=== PATIENT | male | born 1985 | race Caucasian/White ===

== ENCOUNTER 2025-06-01 13:44 | Emergency (ER) | payer MEDICAID ==
[2025-06-01 14:27] LABS: HCT 45.7 % (39.6-50.0); HGB 16.4 g/dL (13.0-17.0); MCH 30.4 pg (27.0-32.0); MCHC 35.9 g/dL (32.0-37.0); MCV 84.6 fL (80.0-97.0); Platelet Count 300 10*3/uL (140-440); RBC 5.40 10*6/uL (4.40-5.60); RDW 12.2 % (11.5-14.5); WBC 6.48 10*3/uL (4.50-10.00)
[2025-06-01] MEDS: SODIUM CHLORIDE 0.9% 1,000 ML IV ONE (14:39)
[2025-06-01] MEDS: ACETAMINOPHEN TAB 500 MG TAB PO STA (14:40)
[2025-06-01] MEDS: ONDANSETRON 4 MG/2 ML VIAL IVP STA (14:41)
[2025-06-01 14:43] LABS: Bilirubin,Urine Negative (Negative); Blood,Urine Trace (Negative); Color,Urine Colorless; Glucose,Urine (UA) Negative (Negative); Ketones,Urine Negative (Negative); Leukocyte Esterase,Urine Negative (Negative); Mucus,Urine Rare /hpf; Nitrite,Urine Negative (Negative); PH, Urine 5.5 (5.0-8.0); Protein,Urine Negative (Negative); RBC,Urine <1 /hpf (0-5); Specific Gravity,Urine 1.008 (1.001-1.035); Urobilinogen,Urine <2.0 mg/dL (<2.0)
[2025-06-01 14:44] LABS: ALT 35 U/L (4-49); AST 39 U/L (17-59); African American GFR (CKD) >90 (>60 ml/min/1.73 sqM); Albumin 4.6 g/dL (3.5-5.0); Alkaline Phosphatase 100 U/L (38-126); Anion Gap 12 mmol/L; Blood Urea Nitrogen 18 mg/dL (9-20); Calcium 9.8 mg/dL (8.4-10.2); Carbon Dioxide 20 mmol/L (22-30); Chloride 105 mmol/L (98-107); Creatine Kinase 217 U/L (55-170); Glucose 97 mg/dL (74-99); Magnesium 2.0 mg/dL (1.6-2.3); Non-African American GFR(CKD) >90 (>60 ml/min/1.73 sqM); Potassium 4.3 mmol/L (3.5-5.1); Sodium 137 mmol/L (137-145); Total Protein 7.7 g/dL (6.3-8.2)
[2025-06-01 14:44] LABS: Glucose,Whole Blood 88 mg/dL (70-110)
[2025-06-01] MEDS: diphenhydrAMINE 50 MG/ML 1 ML VIAL IVP STA (14:44)
[2025-06-01 14:48] LABS: INR 0.9 (<1.2); Partial Thromboplastin Time 25.8 sec (22.0-30.0); Prothrombin Time 10.5 sec (10.0-12.5)
--- NOTE | 2025-06-01 14:49 | ED ---
General Adult HPI - General Chief complaint: Recheck/Abnormal Lab/Rx Stated complaint: Dizziness Time Seen by Provider: 06/01/25 13:55 Source: patient, RN notes reviewed, old records reviewed Mode of arrival: ambulatory Limitations: no limitations - History of Present Illness Initial comments: 39-year-old male who presents department with double and. He is a surveillance officer. States he was sitting looking at his computer when he suddenly experienced some strange sensation as well as some double vision. Had a mild headache. Blood pressure was taken at that time and was elevated. Sent here for further evaluation. Symptoms occurred at approximately 1300. Patient was evaluated at approximately 1355. He still has some mild blurry vision and mild headache but is improving. He has no other symptoms. No history of stroke. Is not on medications. No history of high blood pressure or anxiety. Has no other acute complaints at this time. Presents for further evaluation.States the blurry vision was sudden. No eye pain. No head injury. No other acute complaints. - Related Data Allergies Allergy/AdvReac Type Severity Reaction Status Date / Time No Known Allergies Allergy Verified 06/01/25 13:50 Review of Systems ROS Statement: Those systems with pertinent positive or pertinent negative responses have been documented in the HPI. Review of Systems: CONST: Denies fever EYES: Endorses mild blurry vision, left worse than right. ENT: Denies nasal congestion C/V: Denies Chest pain RESP: Denies shortness of breath GI: Denies abdominal pain : Denies dysuria SKIN: Denies rash. MSK: Denies joint pain. NEURO: Endorses mild headache ROS Other: All systems not noted in ROS Statement are negative. Past Medical History Past Medical History: No Reported History History of Any Multi-Drug Resistant Organisms: None Reported Past Surgical History: No Surgical Hx Reported Past Psychological History: No Psychological Hx Reported Smoking Status: Never smoker Past Alcohol Use History: Occasional Past Drug Use History: None Reported General Exam - General Exam Comments Initial Comments: General: Appears in no acute distress. HEAD: Normal with no signs of head trauma. EYES: PERRLA, EOMI, conjunctiva normal, no discharge. Pupils are 2 mm and equal bilaterally. Visual acuity is 20-30 bilaterally, 20/30 in the left eye, 20/40 in the right eye. Intraocular pressures are within normal limits, right eye is 16 and left eye is 13. ENT: Hearing grossly intact, normal oropharynx. RESPIRATORY: Clear breath sounds bilaterally. No wheezes, rales, or rhonchi. C/V: Regular rate and rhythm. S1 and S2 auscultated, no edema, peripheral pulses 2+ and intact throughout ABD: Abd is soft, nontender, nondistended EXT: Normal range of motion, no obvious deformity SKIN: No rashes or lesions observed on exposed skin. NEURO: Alert and oriented x 4. Cranial nerves II-XII intact. No focal sensory or strength deficits. NIH of 0. GCS 15. Limitations: no limitations Course Vital Signs 06/01/25 06/01/25 13:46 16:22 Temperature 98.7 F 98.5 F Pulse Rate 84 82 Respiratory 20 16 Rate Blood Pressure 156/103 140/93 O2 Sat by Pulse 99 100 Oximetry Medical Decision Making - Medical Decision Making Was pt. sent in by a medical professional or institution (, PA, SLOTTER OPERATOR HELPER, urgent care, hospital, or care home...) When possible be specific @ -No Did you speak to anyone other than the patient for history (EMS, parent, family, police, friend...)? What history was obtained from this source @ -No Did you review nursing and triage notes (agree or disagree)? Why? @ -I reviewed and agree with nursing and triage notes Were old charts reviewed (outside hosp., previous admission, EMS record, old EKG, old radiological studies, urgent care reports/EKG's, care home records)? Report findings @ -No old charts were reviewed Differential Diagnosis (chest pain, altered mental status, abdominal pain women, abdominal pain men, vaginal bleeding, weakness, fever, dyspnea, syncope, headache, dizziness, GI bleed, back pain, seizure, CVA, palpatations, mental health, musculoskeletal)? @ -Blurry vision, electrolyte abnormality, stroke, diabetes, retinal detachment, intracranial bleed. This list is not all-inclusive. EKG interpreted by me (3pts min.). @ -As above X-rays interpreted by me (1pt min.). @None done CT interpreted by me (1pt min.). @ -Brain CT shows no obvious acute intracranial process. CT angiogram head and neck negative for any obvious acute large vessel occlusion or acute process. U/S interpreted by me (1pt. min.). @ -None done What testing was considered but not performed or refused? (CT, X-rays, U/S, labs)? Why? @ -None What meds were considered but not given or refused? Why? @ -None Did you discuss the management of the patient with other professionals (professionals i.e. , PA, SLOTTER OPERATOR HELPER, lab, RT, psych nurse, long term care social worker, functional architect, teacher, mounted police officer, casey saw operator)? Give summary @ -No Was smoking cessation discussed for >3mins.? @ -No Was critical care preformed (if so, how long)? @ -No Were there social determinants of health that impacted care today? How? (Homelessness, low income, unemployed, alcoholism, drug addiction, transportation, low edu. Level, literacy, decrease access to med. care, fpc, r ehab)? @ -No Was there de-escalation of care discussed even if they declined (Discuss DNR or withdrawal of care, Hospice)? DNR status @ -No What co-morbidities impacted this encounter? (DM, HTN, Smoking, COPD, CAD, Cancer, CVA, ARF, Chemo, Hep., AIDS, mental health diagnosis, sleep apnea, morbid obesity)? @ -None Was patient admitted / discharged? Hospital course, mention meds given and route, prescriptions, significant lab abnormalities, going to OR and other pertinent info. @ -Patient presents with blurry vision and some blood pressure elevation at outside facility. Currently blood pressure is within acceptable limits. His symptoms are improving. NIH is 0. We will obtain I evaluation as well as brain evaluation. Patient in agreement this plan. Vitals are within acceptable limit s. He is given IV fluids, as well as a partial migraine cocktail. EKG shows no signs of acute ischemia. CT brain unremarkable. CT angiogram unremarkable. Laboratory studies are all within acceptable limits except for slight elevation in creatinine kinase of 217 which was treated with 1 L fluid bolus. Remainder the labs unremarkable. On reevaluation, symptoms have all resolved. I did do a bedside ultrasound which showed no obvious evidence of retinal detachment. Intraocular exam pressures normal, and eye exam otherwise within acceptable limits. I discussed with the patient he will be discharged home at this time with instructions to follow-up with PCP. Return if any worsening symptoms. Patient was in agreement this plan. We did discuss that he has elevated blood pressures that are not significant elevated at this time could be related to his decongestant use at home and I rec ommended he stop using this and monitor his pressures closely. He was in agreement this plan. I instructed the patient to follow up with their PCP in the next 1-3 days. I explained that the patient should return to the emergency department if they experience any worsening symptoms. Strict return precautions were discussed with the patient. The patient expressed understanding of these instructions. I answered all questions that the patient had. The patient was discharged home in good condition with their prescriptions and follow up information. Undiagnosed new problem with uncertain prognosis? @ -No Drug Therapy requiring intensive monitoring for toxicity (Heparin, Nitro, Insulin, Cardizem)? @ -No Were any procedures done? @ -No Diagnosis/symptom? @ -Dehydration, transient blurry vision Acute, or Chronic, or Acute on Chronic? @ -Acute Uncomplicated (without systemic symptoms) or Complicated (systemic symptoms)? @ -Uncomplicated Side effects of treatment? @ -No Exacerbation, Progression, or Severe Exacerbation? @ -No Poses a threat to life or bodily function? How? (Chest pain, [place], [place], pneumonia, PE, COPD, DKA, ARF, appy, cholecystitis, CVA, Diverticulitis, Homicidal, Suic idal, threat to staff... and all critical care pts) @ -Unlikely at this time - Lab Data Result diagrams: 06/01/25 14:13 06/01/25 14:13 Lab Results 06/01/25 06/01/25 06/01/25 Range/Units 14:13 14:13 14:13 WBC 6.48 (4.50-10.00) 10*3/uL RBC 5.40 (4.40-5.60) 10*6/uL Hgb 16.4 (13.0-17.0) g/dL Hct 45.7 (39.6-50.0) % MCV 84.6 (80.0-97.0) fL MCH 30.4 (27.0-32.0) pg MCHC 35.9 (32.0-37.0) g/dL Plt Count 300 (140-440) 10*3/uL MPV 9.0 L (9.5-12.2) fL PT 10.5 (10.0-12.5) sec INR 0.9 (<1.2) APTT 25.8 (22.0-30.0) sec Sodium 137 (137-145) mmol/L Potassium 4.3 (3.5-5.1) mmol/L Chloride 105 (98-107) mmol/L Carbon Dioxide 20 L (22-30) mmol/L Anion Gap 12 mmol/L BUN 18 (9-20) mg/dL Creatinine 0.80 (0.66-1.25) mg/dL Est GFR (CKD-EPI)AfAm >90 (>60 ml/min/1.73 sqM) Est GFR (CKD-EPI)NonAf >90 (>60 ml/min/1.73 sqM) Glucose 97 (74-99) mg/dL POC Glucose (mg/dL) (70-110) mg/dL POC Glu Booking Supervisor ID Calcium 9.8 (8.4-10.2) mg/dL Magnesium 2.0 (1.6-2.3) mg/dL Total Bilirubin 1.0 (0.2-1.3) mg/dL AST 39 (17-59) U/L ALT 35 (4-49) U/L Alkaline Phosphatase 100 (38-126) U/L Creatine Kinase 217 H (55-170) U/L Total Protein 7.7 (6.3-8.2) g/dL Albumin 4.6 (3.5-5.0) g/dL Urine Color Urine Appearance (Clear) Urine pH (5.0-8.0) Ur Specific [place] (1.001-1.035) Urine Protein (Negative) Urine Glucose (UA) (Negative) Urine Ketones (Negative) Urine Blood (Negative) Urine Nitrite (Negative) Urine Bilirubin (Negative) Urine Urobilinogen (<2.0) mg/dL Ur Leukocyte Esterase (Negative) Urine RBC (0-5) /hpf Urine Mucus (None) /hpf 06/01/25 06/01/25 Range/Units 14:27 14:42 WBC (4.50-10.00) 10*3/uL RBC (4.40-5.60) 10*6/uL Hgb (13.0-17.0) g/dL Hct (39.6-50.0) % MCV (80.0-97.0) fL MCH (27.0-32.0) pg MCHC (32.0-37.0) g/dL Plt Count (140-440) 10*3/uL MPV (9.5-12.2) fL PT (10.0-12.5) sec INR (<1.2) APTT (22.0-30.0) sec Sodium (137-145) mmol/L Potassium (3.5-5.1) mmol/L Chloride (98-107) mmol/L Carbon Dioxide (22-30) mmol/L Anion Gap mmol/L BUN (9-20) mg/dL Creatinine (0.66-1.25) mg/dL Est GFR (CKD-EPI)AfAm (>60 ml/min/1.73 sqM) Est GFR (CKD-EPI)NonAf (>60 ml/min/1.73 sqM) Glucose (74-99) mg/dL POC Glucose (mg/dL) 88 (70-110) mg/dL POC Glu Booking Supervisor ID [facility] Calcium (8.4-10.2) mg/dL Magnesium (1.6-2.3) mg/dL Total Bilirubin (0.2-1.3) mg/dL AST (17-59) U/L ALT (4-49) U/L Alkaline Phosphatase (38-126) U/L Creatine Kinase (55-170) U/L Total Protein (6.3-8.2) g/dL Albumin (3.5-5.0) g/dL Urine Color Colorless Urine Appearance Clear (Clear) Urine pH 5.5 (5.0-8.0) Ur Specific [place] 1.008 (1.001-1.035) Urine Protein Negative (Negative) Urine Glucose (UA) Negative (Negative) Urine Ketones Negative (Negative) Urine Blood Trace H (Negative) Urine Nitrite Negative (Negative) Urine Bilirubin Negative (Negative) Urine Urobilinogen <2.0 (<2.0) mg/dL Ur Leukocyte Esterase Negative (Negative) Urine RBC <1 (0-5) /hpf Urine Mucus Rare H (None) /hpf - EKG Data -: EKG Interpreted by Me EKG Comments: 12-lead Electrocardiogram Interpretation Note EKG was reviewed and interpreted by myself. 12-lead ECG performed at 1407 is interpreted by me as revealing normal sinus rhythm at a rate of 81 beats per minute. Indeterminate axis. NE interval is 121 ms, QRS duration is 99 ms, QTc is 388 ms.. There were no ST or T wave abnormalities to suggest myocardial ischemia or injury. R wave progression across the precordium was satisfactory. By my interpretation this EKG is non-diagnostic for acute ischemia. Disposition Clinical Impression: Blurry vision, Dehydration Disposition: HOME SELF-CARE Condition: Good Additional Instructions: Diagnosis today is dehydration. You had a mild headache since blurry vision which resolved in the ER. No significant complaints at time of discharge. Follow-up with your PCP outpatient. Return if any worsening symptoms. Avoid decongestants. Is patient prescribed a controlled substance at d/c from ED?: No Referrals: Yemi Deluna DO [Primary Care Provider] - 1-2 days Time of Disposition: 15:55
--- NOTE | 2025-06-01 15:27 | CT ---
EXAMINATION TYPE: CT brain wo con DATE OF EXAM: 06/01/2025 3:22 PM COMPARISON: None. CLINICAL INDICATION: Male, 39 years old with history of left eye blurry vision, left eye blurry visio n TECHNIQUE: Brain: Axial CT images of the brain were obtained with coronal and sagittal reformats created and rev iewed. Contrast used: None. Oral contrast used: None. CT DLP: 1159.3 mGycm, Automated exposure control for dose reduction was used. FINDINGS: Brain: Extra-axial spaces: No abnormal extra-axial fluid collections. Ventricular system: Within normal limits Cerebral parenchyma: No acute intraparenchymal hemorrhage or mass effect. The silva-white junction is well differentiated. Cerebellum: Unremarkable. Mass effect: No evidence of midline shift. Intracranial vasculature: unremarkable Soft tissues: Normal. Calvarium/osseous structures: No depressed skull fracture. Paranasal sinuses and mastoid air cells: Complete opacification of the partially visualized bilateral maxillary sinuses. Scattered ethmoid air cell mucosal thickening. Also thickening in the sphenoid si nuses. Visualized orbits: Orbital contents are intact. IMPRESSION: No acute intracranial process. [facility], , 06/01/2025 3:25 PM
--- NOTE | 2025-06-01 15:39 | CT ---
EXAMINATION TYPE: CT angio head neck DATE OF EXAM: 06/01/2025 3:24 PM COMPARISON: None. CLINICAL INDICATION: Male, 39 years old with history of left eye blurry vision; PHH, left eye blurry vision TECHNIQUE: Axially acquired helical CT angiogram of the head and neck was obtained with contrast. Axi al images are supplemented with 3D reconstructions and MIP images which were post-processed at an in dependent workstation. NASCET criteria used. Contrast used:65 mL of Isovue 370 with IV Contrast, Oral contrast used: None. CT DLP: 593.7 mGycm, Automated exposure control for dose reduction was used. FINDINGS: CTA HEAD: No evidence of acute intracranial hemorrhage, mass effect, or midline shift. The ventricles, sulci, a nd cisterns are unremarkable. Vertebral arteries: The vertebral arteries are patent. Vertebral artery dominance: Codominant Basilar artery: The basilar artery is intact. The basilar artery bifurcation is normal. Internal Carotid arteries: The cervical, petrous, cavernous and supraclinoid segments are normal. JULIA: Patent with no evidence of aneurysm. ACOM: Present without evidence of aneurysm. MCA: Patent with no evidence of aneurysm. AUTOMOTIVE PARTS COORDINATOR: Patent with no evidence of aneurysm. PCOM: Hypoplastic bilaterally. Dural sinuses: Patent. CTA NECK: Right Carotid System: The common carotid artery and external carotid artery are patent. The carotid bifurcation demonstrate s no evidence of hemodynamically significant stenosis. The remaining portions of the internal carotid artery demonstrate normal size without significant narrowing. Left Carotid System: The common carotid artery and external carotid artery are patent. The carotid bifurcation demonstrate s no evidence of hemodynamically significant stenosis. The remaining portions of the internal carotid artery demonstrate normal size without significant narrowing. Vertebral arteries are patent without evidence hemodynamically significant stenosis. There is a three-vessel aortic arch. The origins of the great vessels are patent. No evidence of hemo dynamically significant stenosis. Upper thorax: IMPRESSION: 1. No evidence of dissection of the cervical internal carotid arteries or vertebral arteries. 2. No any evidence of significant stenosis at the carotid bifurcations. 3. No evidence of intracranial high-grade stenosis or intracranial aneurysm. [facility], , 06/01/2025 3:37 PM
[2025-06-01 16:26] VITALS: BP 140/93; PULSE 82; RESP 16; TEMP 98.5
== END 2025-06-01 16:27 | disposition home or self-care (01) ==
LOC: EC 13:44
DX: E86.0 Dehydration (principal); H53.8 Other visual disturbances
CPT/HCPCS: 36415; 93005; 80053; 82550; 83735; 85027; 85610; 85730; 81001; 70496; 70450; 70498; 99284; 96374; 96375; 96361; J1200; J2405; Q9967